=== PATIENT | male | born 1985 | race Caucasian/White ===

== ENCOUNTER 2021-11-26 19:13 | Emergency (ER) | payer BC, SELFPAY ==
[2021-11-26 19:30] VITALS: BP 135/77; PULSE 77; RESP 22; TEMP 36.6; O2SAT 98; BMI 25.7
--- NOTE | 2021-11-26 19:55 | HMH.EDUTC ---
[facility] [place] Disposition Clinical Impression: Witnessed seizure-like activity Disposition: Still a Patient Condition on Discharge: Fair Referrals: Provider,Referral, [Primary Care Provider] - Medical Decision Making - Leonard Inquiry Pt receiving controlled substance: No Leonard was queried for this patient: No Vital Signs: 11/26/21 19:30 11/26/21 20:38 Temperature 97.8 F 97.8 F Temperature Source Oral Oral Pulse Rate [Left Brachial] 77 78 Respiratory Rate 22 Blood Pressure [Left Arm] 135/77 138/90 Blood Pressure Mean [Left Arm] 96 106 Blood Pressure Source [Left Arm] Automatic Cuff Blood Pressure Position [Left Arm] Sitting 02 Sat by Pulse Oximetry 98 97 Oxygen Delivery Method Room Air Orders (Tests/Meds): ED MEDICATIONS Discontinued Medications Generic Name Dose Route Start Last Admin Trade Name Freq PRN Reason Stop Dose Admin Aspirin 324 mg 11/26/21 21:06 Aspirin 81mg Chewable Tablet PO 11/26/21 21:07 ONCE ONE ORDERS Category Date Time Status Complete Blood Count Auto Diff Stat Lab 11/26/21 20:46 Ordered Comprehensive Metabolic Panel Stat Lab 11/26/21 20:46 Ordered MAG [Magnesium] Stat Lab 11/26/21 21:06 Ordered Trop I [Troponin I] Stat Lab 11/26/21 20:46 Ordered Troponin I Q3H Lab 11/27/21 00:15 Ordered Troponin I Q3H Lab 11/27/21 03:15 Ordered EKG Request [ECG Request by /Maynor] Stat Y 11/26/21 20:46 Ordered EKG Request [ECG Request by /Maynor] Stat Y 11/26/21 21:07 Ordered Medical Decision Narrative: Due to possible seizure like activity and patient reports does not feel right and having light headedness and dizziness and questionable seizure like activity discussed with patient and recommended transfer to the ED for further work up and evaluation and patient agreed Called ED spoke with Tamiko no bed available at this time [facility] [place] HPI - General Stated complaint: Seizure after taking Caffeene pill Time Seen by Provider: 11/26/21 19:55 Mode of Arrival: Ambulatory Source of Information: Patient Limitations: No Limitations Description of Symptoms (Recalled from Triage Doc. by RN): PATIENT STATES HE HAD A POSSIBLE SEIZURE EARLIER TODAY. HE REPORTS HE TOOK SOME STACKERS THAT HE GOT AT A GAS STATION, THEN APPROX 30 MINUTES AFTER HE REPORTS HAVING A HOT FLASH AND DIDN'T REMEMBER WHAT HAPPENED AFTER THAT. FAMILY WITH HIM STATES THAT HIS SUSPECTED SEIZURE LASTED APPROX 1.5 MINUTES. EMS RESPONDED. PATIENT STATES HE STILL FEELS FUNNY AND DROWSY HEENT Symptoms (Recalled from RN notes): No Resp Symptoms (Recalled from RN notes): No Skin Symptoms (Recalled from RN notes): No MS Symptoms (Recalled from RN notes): No Functional Status (Recalled from RN notes): WNL - History of Present Illness Provider Complaint: Patient states that he stopped at a gas station earlier and bought some stackers and took them States that about 30min later he felt like he had hot flashes and pulled over and doesnt remember what happened next states that his head fell back and she grabbed his arm and he stiffened up and made a funny noise and was starring straight ahead like he was having a seizure and she called EMS states that afterwards he got up and walked around and refused EMS but he states he still doesnt feel right States that he feels light headed and sleepy States that also had open heart surgery as a child - Related Data Allergies Allergy/AdvReac Type Severity Reaction Status Date / Time No Known Allergies Allergy Verified 11/26/21 19:54 - Worker's Comp Is this a Worker's Comp case?: No [facility] History - Hepatitis A Screen Attestation statement:: This patient has been screened for Hepatitis A risk factors. I have reviewed the patient's past medical history: Yes ROS Obtained: Yes All systems reviewed & no additional complaints, Yes Systems reviewed as appropriate & no additional complaints - Constitutional Constitutional: Reports system reviewed and no additiona
--- NOTE | 2021-11-26 20:36 | PC.NURSE ---
PATIENT SENT TO ER PER Jossy CLEMONS APRN FOR FURTHER EVALUATION. REPORT GIVEN TO Miracle RODRIGUEZ RN
[2021-11-26 20:38] VITALS: BP 138/90; PULSE 78; RESP 22; TEMP 36.6; O2SAT 97; BMI 25.8
--- NOTE | 2021-11-26 21:00 | ECG_ITS ---
APPROVED REPORT Exam: Resting ECG HR:83 bpm ECG Measurements Heart Rate 83 AXES [place] 164 P 48 QRSd 201 QRS -56 QT 452 T 49 QTc 492 Conclusion SINUS RHYTHM RIGHT BUNDLE BRANCH BLOCK [120+ ms QRS DURATION, UPRIGHT V1, 40+ ms S IN I/aVL/V4/V5/V6] LEFT ANTERIOR FASCICULAR BLOCK [QRS AXIS <= -45, QR IN I, RS IN II] ABNORMAL ECG UNCONFIRMED REPORT Electronically signed by : Lan Owens MD 11/27/2021 09:48:28
--- NOTE | 2021-11-26 21:01 | HMH.EDGENADL ---
ED Disposition Clinical Impression: (Ruled Out): Witnessed seizure-like activity Disposition: Home, Self-Care Condition on Discharge: Good Additional Instructions: Drink plenty of fluids to stay hydrated. Avoid strenuous activity, get plenty of rest. Follow-up with your primary care physician as needed. Referrals: Provider,Referral, [Primary Care Provider] - - Critical Care Critical Care Time: No Attestation: On 11/26/21, the high probability of a clinically significant, sudden or life threatening deterioration of the following system(s) required my full and direct attention, intervention and personal management. The time I documented below is in addition to time spent performing reported procedures but includes the following listed in this critical care notation. Medical Decision Making - Medical Records Medical records reviewed: Yes: I reviewed the patient's medical records. - Leonard Inquiry Pt receiving controlled substance: No Vital Signs: 11/26/21 19:30 11/26/21 20:38 Temperature 97.8 F 97.8 F Temperature Source Oral Oral Pulse Rate [Left Brachial] 77 78 Respiratory Rate 22 22 Blood Pressure [Left Arm] 135/77 138/90 Blood Pressure Mean [Left Arm] 96 106 Blood Pressure Source [Left Arm] Automatic Cuff Blood Pressure Position [Left Arm] Sitting 02 Sat by Pulse Oximetry 98 97 Oxygen Delivery Method Room Air - Lab Data Lab Results 11/26/21 20:45: WBC 13.0 H, RBC 4.68, Hgb 15.2, Hct 46.1, MCV 98.5 H, MCH 32.5 H, MCHC 33.0, RDW 13.3, Plt Count 284, MPV 8.8, Neut % (Auto) 78.4, Lymph % (Auto) 12.6, [place] % (Auto) 6.5, Eos % (Auto) 1.2, Baso % (Auto) 1.3, Neut # (Auto) 10.2 H, Lymph # (Auto) 1.6, [place] # (Auto) 0.9, Eos # (Auto) 0.2, Baso # (Auto) 0.2 11/26/21 20:45: Sodium 140, Potassium 4.1, Chloride 102, Carbon Dioxide 23, Anion Gap 19.1 H, BUN 18, Creatinine 0.90, Estimated Creat Clear 111, Estimated GFR 94, Est GFR ( Amer) 114, Glucose 107 H, Calcium 9.7, Total Bilirubin 0.3, AST 45, ALT 37, Alkaline Phosphatase 92, Troponin I < 0.01, Total Protein 9.1 H, Albumin 5.3 H, Globulin 3.8 H, Albumin/Globulin Ratio 1.4 11/26/21 20:45: Magnesium 2.0 Result diagrams: 11/26/21 20:45 11/26/21 20:45 Orders (Tests/Meds): ED MEDICATIONS Discontinued Medications Generic Name Dose Route Start Last Admin Trade Name Adán PRN Reason Stop Dose Admin Aspirin 324 mg 11/26/21 21:06 11/26/21 21:30 Aspirin 81mg Chewable Tablet PO 11/26/21 21:07 324 mg ONCE ONE Administration ORDERS Category Date Time Status Troponin I Q3H Lab 11/27/21 00:15 Ordered Troponin I Q3H Lab 11/27/21 03:15 Ordered - ECG Data Tracing #1 EKG right bundle branch block with a rate of 83, left anterior fascicular block, ST depressions in the lateral leads. Medical Decision Narrative: 36-year-old male with prior history of cardiac surgery as a kid who is presenting to the ED after syncopal episode versus seizure. Differential diagnoses include orthostatic hypotension, epileptic seizure, vasovagal syncope, dehydration, ACS, cardiac arrhythmia. Given this work-up will include EKG, CMP, CBC. Vital signs are stable, normal neurological exam with GCS 15 without any focal neurological deficits. Patient feels well, would like to attempt oral rehydration however we did offer giving 1 L of IV fluids. After receiving patient's EKG he has a right bundle branch block with ST depression in the lateral leads which is concerning, there are no prior EKGs to review therefore we will repeat this in troponins as well as magnesium. I went back and checked on the patient after reviewing his first EKG and he confirms that he is not experiencing any chest pain, chest discomfort, shortness of breath. Labs are reassuring and nonactionable. His initial troponin was less than 0.01, at no point during today did he experience any chest pain, discomfort, or shortness of breath. His repeat EKG is unchanged, he continues to endorse
[2021-11-26 21:17] LABS: Basophils # 0.2 K/mm3 (0-0.2); Basophils % 1.3 % (0.1-2.0); Chloride 102 mmol/L (98-107); Eosinophils # 0.2 K/mm3 (0.0-0.4); Eosinophils % 1.2 % (0.1-12.0); Hematocrit 46.1 % (42.0-52.0); Hemoglobin 15.2 g/dL (14.1-18.0); Lymphocytes # 1.6 K/mm3 (0.7-4.5); Lymphocytes % 12.6 % (10-50); Mean Corpuscular Hemoglobin 32.5 pg (27.0-31.2); Mean Corpuscular Volume 98.5 fl (80-94); Mean Platelet Volume 8.8 fl (7.4-10.4); Monocytes # 0.9 K/mm3 (0.1-1.0); Monocytes % 6.5 % (1.7-9.3); Neutrophils # 10.2 K/mm3 (1.8-7.8); Neutrophils % 78.4 % (37.0-80.0); Platelet Count 284 K/mm3 (142-424); Potassium 4.1 mmoL/L (3.5-5.1); Red Blood Count 4.68 M/mm3 (4.60-6.20); Red Cell Distribution Width 13.3 % (11.5-17.5); Sodium 140 mmol/L (136-145)
[2021-11-26 21:20] LABS: Alanine Aminotransferase 37 U/L (12-78); Albumin Level 5.3 g/dl (3.5-5.0); Albumin/Globulin Ratio 1.4 (1.1-1.8); Alkaline Phosphatase 92 U/L (38-126); Anion Gap 19.1 mEq/L (5-15); Aspartate Amino Transferase 45 U/L (17-59); Bilirubin,Total 0.3 mg/dl (0.2-1.3); Blood Urea Nitrogen 18 mg/dl (9-20); Carbon Dioxide 23 mmol/L (22.0-30.0); Creatinine Clearance Estimated 111 mL/min (50-200); Estimated Glomerular Filt Rate 94 ml/min (>60); GFR (African American) 114 ML/MIN (>60); Globulin 3.8 g/dL (1.3-3.2); Total Protein,Serum 9.1 g/dl (6.3-8.2)
[2021-11-26 21:21] LABS: Calcium 9.7 mg/dl (8.4-10.2)
[2021-11-26 21:34] LABS: Troponin I < 0.01 ng/ml (0.00-0.034)
[2021-11-26 21:37] LABS: Glucose 107 mg/dl (74-100)
--- NOTE | 2021-11-26 21:38 | ECG_ITS ---
APPROVED REPORT Exam: Resting ECG HR:80 bpm ECG Measurements Heart Rate 80 AXES [place] 191 P 50 QRSd 197 QRS -55 QT 442 T 40 QTc 478 Conclusion SINUS RHYTHM RIGHT BUNDLE BRANCH BLOCK [120+ ms QRS DURATION, UPRIGHT V1, 40+ ms S IN I/aVL/V4/V5/V6] LEFT ANTERIOR FASCICULAR BLOCK [QRS AXIS <= -45, QR IN I, RS IN II] ABNORMAL ECG UNCONFIRMED REPORT Electronically signed by : Lan Owens MD 11/27/2021 09:48:22
[2021-11-26 22:42] VITALS: BP 124/75; PULSE 67; RESP 16; TEMP 36.6; O2SAT 97
== END 2021-11-26 22:43 | disposition home or self-care (01) ==
LOC: UTC 20:01 → ER 20:33
PROVIDERS: Emergency Provider Emergency Medicine
DX: T43.615A Adverse effect of caffeine, initial encounter (principal); R56.9 Unspecified convulsions; I45.19 Other right bundle-branch block; Z86.79 Personal history of other diseases of the circulatory system
CPT/HCPCS: 80053; 83735; 84484; 85025; 93005; 99284